=== PATIENT | male | born 1985 | race Two or more races ===

== ENCOUNTER 2023-06-30 15:28 | Emergency (ER) | payer MEDICAID, OTHER ==
[~2023-06-30] VITALS: Ht 193 cm; Wt 113.6 kg
[2023-06-30 15:47] LABS: Eosinophils # (auto) 0.2 10 ^3/uL (0-0.8)
[2023-06-30 15:49] LABS: Basophils # (auto) 0 10 ^3/uL (0-0.2); Basophils % (auto) 0.6 % (0.0-2.0); Eosinophils % (auto) 2.2 % (0.0-7.0); Hematocrit 37.1 % (41.0-53.0); Lymphocytes # (auto) 2.2 10 ^3/uL (0.4-5.4); Lymphocytes % (auto) 28.2 % (10.0-50.0); Mean Corpuscular Hemoglobin 26.5 pg (28.0-32.0); Mean Corpuscular Hgb Conc. 32.3 g/dL (32.0-36.0); Mean Corpuscular Volume 81.8 fL (80.0-100.0); Monocytes # (auto) 0.5 10 ^3/uL (0-1.3); Monocytes % (auto) 5.9 % (0.0-12.0); Neutrophils # (auto) 4.8 10 ^3/uL (1.6-8.6); Neutrophils % (auto) 63.1 % (37.0-80.0); Red Blood Cells 4.53 10^6/uL (4.5-5.90); Red Cell Distribution Width 15.7 % (11.8-14.3); White Blood Cell 7.6 10^3/uL (4.4-10.8)
[2023-06-30 16:04] LABS: INR 1.05 (0.9-1.15); Partial Thromboplastin Time 30.3 SEC (24.5-34.5)
[2023-06-30 16:05] LABS: Alanine Aminotransferase 23 U/L (7-40); Albumin 4.2 g/dL (3.2-4.8); Alkaline Phosphatase 64 U/L (46-116); Anion Gap 5 (5-15); Aspartate Aminotransferase 18 U/L (13-40); BUN/Creatinine Ratio 17.2 (10.0-20.0); Blood Urea Nitrogen 16 mg/dL (9-23); Calcium 8.9 mg/dL (8.7-10.4); Carbon Dioxide 31 mmol/L (20-30); Chloride 105 mmol/L (98-107); Glucose 76 mg/dL (74-106); Potassium 4.1 mmol/L (3.5-5.1); Sodium 141 mmol/L (136-145)
[2023-06-30 16:06] LABS: Bilirubin, Total 0.3 mg/dL (0.2-1.0); Total Protein 7.5 g/dL (5.7-8.2)
[2023-06-30] MEDS ORDERED: LORA-1121 GT (17:59)
[2023-06-30 18:17] VITALS: BP 144/82; PULSE 84; RESP 19; TEMP 98.4; O2SAT 96
== END 2023-06-30 18:19 | disposition home or self-care (01) ==
LOC: ER 15:28
DX: R00.2 Palpitations (principal); I10 Essential (primary) hypertension
CPT/HCPCS: 36415; 71046; 80053; 84484; 85025; 85379; 85610; 85730; 93005

== ENCOUNTER 2023-10-01 09:34 | Emergency (ER) | payer MEDICAID ==
[~2023-10-01] VITALS: Ht 193 cm; Wt 151.0 kg
[~2023-10-01 09:34] MED LIST: LORA-1121 GT
[2023-10-01] MEDS: KETOROLAC TROMETH 60MG/2ML VIAL ONE (11:17)
[2023-10-01] MEDS: methylPREDNISolone SOD SUCC 125 MG/2 ML VL ONE (11:18)
[2023-10-01] MEDS: methylPREDNISolone SOD SUCC 125 MG/2 ML VL IM ONE (11:46)
[2023-10-01] MEDS: KETOROLAC TROMETH 60MG/2ML VIAL IM ONE (11:46)
[2023-10-01] MEDS ORDERED: MELO7.5T7 PO (13:54)
[2023-10-01] MEDS ORDERED: CYCL-837 PO (13:54)
[2023-10-01 14:14] VITALS: BP 167/96; PULSE 80; RESP 18; TEMP 98.6; O2SAT 96
== END 2023-10-01 14:14 | disposition home or self-care (01) ==
LOC: ER 09:34
DX: M54.16 Radiculopathy, lumbar region (principal); M79.18 Myalgia, other site; I10 Essential (primary) hypertension
CPT/HCPCS: 72100; 96372; 99284; J1885; J2930

== ENCOUNTER 2023-10-29 08:28 | Emergency (ER) | payer MEDICAID ==
[~2023-10-29] VITALS: Ht 190.5 cm; Wt 149.9 kg
[~2023-10-29 08:28] MED LIST changes: +CYCL-837 PO; +MELO7.5T7 PO
[2023-10-29 09:23] VITALS: BP 155/106; PULSE 85; RESP 18; TEMP 98; O2SAT 96
[2023-10-29] MEDS: HYDROcodone-ACET 5/325MG TAB PO ONE (09:33)
[2023-10-29] MEDS: methylPREDNISolone SOD SUCC 125 MG/2 ML VL IM ONE (09:34)
== END 2023-10-29 10:33 | disposition home or self-care (01) ==
LOC: ER 08:28
DX: M54.16 Radiculopathy, lumbar region (principal); I10 Essential (primary) hypertension; M54.42 Lumbago with sciatica, left side
CPT/HCPCS: 96372; 99283; J2930

== ENCOUNTER 2024-03-23 20:04 | Inpatient (IN) | payer MEDICAID ==
[~2024-03-23] VITALS: Ht 190.5 cm; Wt 149.5 kg
[2024-03-23] MEDS: IOHEXOL 300 MG/ML 100ML BOTTLE IJ ONE (22:02)
[2024-03-23 22:36] LABS: Basophils # (auto) 0 10 ^3/uL (0-0.2); Basophils % (auto) 0.3 % (0.0-2.0); Eosinophils # (auto) 0 10 ^3/uL (0-0.8); Eosinophils % (auto) 0.6 % (0.0-7.0); Hematocrit 39.5 % (41.0-53.0); Hemoglobin 12.7 g/dL (13.5-17.5); Lymphocytes # (auto) 1.2 10 ^3/uL (0.4-5.4); Mean Corpuscular Volume 84.2 fL (80.0-100.0); Monocytes # (auto) 0.3 10 ^3/uL (0-1.3); Monocytes % (auto) 4.5 % (0.0-12.0); Neutrophils # (auto) 6.2 10 ^3/uL (1.6-8.6); Neutrophils % (auto) 79.6 % (37.0-80.0); Nucleated Red Blood Cells % 0.2 %; Platelet Count (auto) 351 10^3/uL (140-450); Red Blood Cells 4.69 10^6/uL (4.5-5.90); White Blood Cell 7.8 10^3/uL (4.4-10.8)
[2024-03-23 22:54] LABS: Alanine Aminotransferase 19 U/L (7-40); Albumin 4.7 g/dL (3.2-4.8); Alkaline Phosphatase 60 U/L (46-116); Anion Gap 7 (5-15); Aspartate Aminotransferase 14 U/L (13-40); BUN/Creatinine Ratio 15.5 (10.0-20.0); Blood Urea Nitrogen 16 mg/dL (9-23); Calcium 9.8 mg/dL (8.7-10.4); Carbon Dioxide 27 mmol/L (20-31); Chloride 109 mmol/L (98-107); Glucose 111 mg/dL (74-106); Potassium 4.1 mmol/L (3.5-5.1); Sodium 143 mmol/L (136-145)
[2024-03-23 22:55] LABS: Bilirubin, Total 0.4 mg/dL (0.2-1.0)
[2024-03-23] MEDS: ONDANSETRON HCL 4 MG/2 ML VIAL IV ONE (22:56)
[2024-03-23] MEDS: MORPHINE SULFATE 4 MG/ML SYR/VIAL IV ONE (22:57)
[2024-03-23 23:04] VITALS: PULSE 61; RESP 19; O2SAT 99
[2024-03-23] MEDS: SODIUM CHLORIDE 0.9% 1,000 ML IV ONE (23:04)
[2024-03-24] VITALS (8 sets, daily range): BP systolic 134–150; BP diastolic 76–95; PULSE 53–88; RESP 16–20; TEMP 97.2–98.1; O2SAT 92–100
[2024-03-24] MEDS: MORPHINE SULFATE 4 MG/ML SYR/VIAL IV ONE (03:15)
[2024-03-24] MEDS ORDERED: ONDANSETRON HCL 4 MG/2 ML VIAL IV PRN ×2 (03:45→16:00)
[2024-03-24] MEDS ORDERED: MORPHINE SULFATE INJ 2 MG/ml SYRG IV PRN ×2 (03:45→16:00)
[2024-03-24] MEDS: SODIUM CHLORIDE 0.9% 1,000 ML IV SCH (04:12)
[2024-03-24 05:09] LABS: INR 1.06 (0.9-1.15); Partial Thromboplastin Time 28.9 SEC (24.5-34.5); Prothrombin Time 11.2 sec (9.3-11.8)
[2024-03-24] MEDS: hydrALAZINE HCL 20 MG/ML VL IV PRN (06:15)
[2024-03-24] MEDS: GASTROGRAFIN 120 ML SOL ONE (07:54)
[2024-03-24 11:26] LABS: Urine Bacteria None Seen /hpf (None Seen)
[2024-03-24 11:41] LABS: Urine Blood Negative /uL (Negative); Urine Clarity Clear (Clear); Urine Color Light-Yellow (Yellow); Urine Protein, UAD Negative (Negative); Urine Specific Gravity 1.039 (1.001-1.035); Urine Urobilinogen Normal (Negative); Urine WBC 1 /hpf (0 - 3); Urine pH 6.5 (5.0-9.0)
[2024-03-24] MEDS: ceFAZolin 2 GM/D5W100ml 100 ML IV ONE (14:13)
[2024-03-24] MEDS: ceFAZolin 1GM/50ML 50 ML IV ONE (14:13)
[2024-03-24] MEDS: SUCCINYLCHOLINE CHLORIDE 20 MG/ML 10ML VIAL IV ONE (14:49)
[2024-03-24] MEDS ORDERED: LIDOCAINE 2% (LOCAL ANESTH.) PF 5ml SDV ONE (14:54)
[2024-03-24] MEDS ORDERED: HYDROmorphone HCL 2 MG/ML VL/or syr ONE (14:54)
[2024-03-24] MEDS ORDERED: GLYCOPYRROLATE 0.2 MG/ML 1ML VIAL ONE (14:54)
[2024-03-24] MEDS ORDERED: PROPOFOL 10 MG/ML 20 ML IV ONE (14:54)
[2024-03-24] MEDS ORDERED: ePHEDrine SULFATE 50 MG/ML AMP ONE (14:54)
[2024-03-24] MEDS ORDERED: DexAMETHasone SOD PHOS 10MG/1ML VIAL INJ ONE (14:54)
[2024-03-24] MEDS ORDERED: fentaNYL CITRATE 100 MCG/2 ML VL ONE (14:54)
[2024-03-24] MEDS ORDERED: KETOROLAC TROMETH 30 MG/ML 1ML VIAL ONE (14:54)
[2024-03-24] MEDS ORDERED: ROCURONIUM 10MG/ML 10ML VIAL IV ONE (14:57)
[2024-03-24] MEDS ORDERED: MIDAZOLAM HCL 2MG/2ML 2ml VIAL (1mg/ml) ONE (14:58)
[2024-03-24] MEDS: BUPIVACAINE 0.25% INJ 50ML VIAL ONE (15:14)
[2024-03-24] MEDS: LIDOCAINE W/ EPINEPHRINE 1% 20ML VIAL ONE (15:14)
[2024-03-24] MEDS ORDERED: D5W/SOD CHL 0.45%/KCL 20MEQ 1,000 ML IV SCH (16:00)
[2024-03-24] MEDS ORDERED: IPRATROPIUM BROM 0.5 MG/2.5ML INH SOL NEB PRN (16:00)
[2024-03-24] MEDS ORDERED: ALBUTEROL SULF 2.5 MG/0.5ML(0.5%) NEB SOLN NEB PRN (16:00)
[2024-03-24] MEDS: LIDOCAINE 1%-Mpf/Epinephrine 1:200,000 30ml VIAL IJ ONE (16:15)
[2024-03-24] MEDS ORDERED: SUGAMMADEX 200mg/2ml Vial (100MG/ML) IV ONE (16:17)
[2024-03-24] MEDS: POVIDONE IODINE 10 % TOPICAL OINT 30GM TOP ONE ×2 (16:29→16:36)
[2024-03-24] MEDS ORDERED: ACETAMINOPHEN/CODEINE#3 (300/30mg) TAB PO PRN (16:30)
[2024-03-24] MEDS: D5W/SOD CHL 0.45%/KCL 20MEQ 1,000 ML IV SCH (16:30)
[2024-03-24] MEDS: HYDROmorphone HCL 2 MG/ML VL/or syr IV ONE (16:30)
[2024-03-24] MEDS ORDERED: HYDROmorphone HCL 2 MG/ML VL/or syr IV PRN (17:00)
[2024-03-24] MEDS: ONDANSETRON HCL 4 MG/2 ML VIAL IV ONE (17:00)
[2024-03-24] MEDS ORDERED: LOSA-535 PO (17:40)
[2024-03-24] MEDS ORDERED: AMLO1TAB22 PO (17:40)
[2024-03-24] MEDS ORDERED: CLOP75TA70 PO (17:41)
[2024-03-24] MEDS ORDERED: MELO15TA29 PO (17:41)
[2024-03-24] MEDS ORDERED: ASPI-325 PO (17:41)
[2024-03-24] MEDS ORDERED: CHOL20003 PO (17:41)
[2024-03-24] MEDS ORDERED: LABETALOL HCL 20 MG/4 ML VL IV PRN (18:30)
[2024-03-24] MEDS: ceFAZolin 2 GM/D5W50ml 50 ML IV SCH (22:05)
[2024-03-25] VITALS (9 sets, daily range): BP systolic 107–142; BP diastolic 58–96; PULSE 71–85; RESP 16–20; TEMP 97.6–98.9; O2SAT 94–100
[2024-03-25 07:43] LABS: Basophils # (auto) 0 10 ^3/uL (0-0.2); Eosinophils # (auto) 0 10 ^3/uL (0-0.8); Hematocrit 37.7 % (41.0-53.0); Hemoglobin 12.7 g/dL (13.5-17.5); Lymphocytes # (auto) 1.1 10 ^3/uL (0.4-5.4); Lymphocytes % (auto) 11.2 % (10.0-50.0); Mean Corpuscular Hemoglobin 28.3 pg (28.0-32.0); Mean Corpuscular Hgb Conc. 33.6 g/dL (32.0-36.0); Mean Corpuscular Volume 84.3 fL (80.0-100.0); Monocytes # (auto) 0.3 10 ^3/uL (0-1.3); Monocytes % (auto) 2.9 % (0.0-12.0); Neutrophils # (auto) 8.4 10 ^3/uL (1.6-8.6); Neutrophils % (auto) 85.9 % (37.0-80.0); Platelet Count (auto) 316 10^3/uL (140-450); Red Blood Cells 4.47 10^6/uL (4.5-5.90); Red Cell Distribution Width 14.9 % (11.8-14.3); White Blood Cell 9.8 10^3/uL (4.4-10.8)
[2024-03-25 07:45] LABS: Alanine Aminotransferase 15 U/L (7-40); Albumin 4.2 g/dL (3.2-4.8); Alkaline Phosphatase 59 U/L (46-116); Anion Gap 9 (5-15); Aspartate Aminotransferase 12 U/L (13-40); BUN/Creatinine Ratio 12.7 (10.0-20.0); Blood Urea Nitrogen 10 mg/dL (9-23); Calcium 9.5 mg/dL (8.7-10.4); Carbon Dioxide 25 mmol/L (20-31); Chloride 106 mmol/L (98-107); Glucose 102 mg/dL (74-106); Potassium 3.8 mmol/L (3.5-5.1); Sodium 140 mmol/L (136-145)
[2024-03-25 07:46] LABS: Bilirubin, Total 0.4 mg/dL (0.2-1.0); Total Protein 7.3 g/dL (5.7-8.2)
[2024-03-25] MEDS: PANTOPRAZOLE 40 MG/10 ML VIAL INJ IV SCH (11:32)
[2024-03-25] MEDS ORDERED: CEPH500T PO (12:11)
== END 2024-03-25 18:30 | disposition home or self-care (01) | DRG 227 ==
LOC: ER 20:04 → OVERFLOW 03-24 03:44 → WEST WING 03-24 17:17
PROVIDERS: ADMIT Nurse Practitioner; ATTEND Nurse Practitioner Acute Care
PROC: 0WQF0ZZ Repair Abdominal Wall, Open Approach (ICD-10-PCS; 2024-03-24)
PROC: 0DBU0ZZ Excision of Omentum, Open Approach (ICD-10-PCS; principal; 2024-03-24 15:25)
DX: K43.6 Other and unspecified ventral hernia with obstruction, without gangrene (principal); E66.9 Obesity, unspecified; K42.0 Umbilical hernia with obstruction, without gangrene; I10 Essential (primary) hypertension; Z68.39 Body mass index [BMI] 39.0-39.9, adult
CPT/HCPCS: 36415; 74177; 80053; 81001; 85025; 85610; 85730; 86850; 86900; 86901; 93005; 96361; 96374; 96375; 96376; 99291; C1781; G0378; J0330; J1100; J1885; J2001; J2250; J2405; J2470; J2704; J3490

== ENCOUNTER 2024-04-06 11:29 | Emergency (ER) | payer MEDICAID ==
[~2024-04-06] VITALS: Ht 190.5 cm; Wt 141.6 kg
[~2024-04-06 11:29] MED LIST changes: +AMLO1TAB22 PO; +ASPI-325 PO; +CEPH500T PO; +CHOL20003 PO; +CLOP75TA70 PO; -CYCL-837 PO; -LORA-1121 GT; +LOSA-535 PO; +MELO15TA29 PO; -MELO7.5T7 PO
[2024-04-06 11:54] LABS: Urine Bacteria None Seen /hpf (None Seen)
[2024-04-06 12:13] LABS: Urine Blood Negative /uL (Negative); Urine Clarity Clear (Clear); Urine Color Light-Yellow (Yellow); Urine Mucus FEW (None Seen); Urine Protein, UAD Negative (Negative); Urine Specific Gravity 1.019 (1.001-1.035); Urine Urobilinogen Normal (Negative); Urine WBC 1 /hpf (0 - 3); Urine pH 6.5 (5.0-9.0)
[2024-04-06] MEDS: SODIUM CHLORIDE 0.9% 1,000 ML IVB ONE (12:24)
[2024-04-06] MEDS: KETOROLAC TROMETH 30 MG/ML 1ML VIAL IV ONE (12:26)
[2024-04-06 12:34] LABS: Basophils # (auto) 0.1 10 ^3/uL (0-0.2); Basophils % (auto) 0.7 % (0.0-2.0); Eosinophils # (auto) 0.1 10 ^3/uL (0-0.8); Eosinophils % (auto) 1.3 % (0.0-7.0); Hematocrit 39.5 % (41.0-53.0); Hemoglobin 12.8 g/dL (13.5-17.5); Lymphocytes # (auto) 1.7 10 ^3/uL (0.4-5.4); Lymphocytes % (auto) 21.5 % (10.0-50.0); Mean Corpuscular Hemoglobin 27.1 pg (28.0-32.0); Mean Corpuscular Hgb Conc. 32.3 g/dL (32.0-36.0); Mean Corpuscular Volume 83.9 fL (80.0-100.0); Monocytes # (auto) 0.5 10 ^3/uL (0-1.3); Neutrophils # (auto) 5.6 10 ^3/uL (1.6-8.6); Neutrophils % (auto) 70.5 % (37.0-80.0); Nucleated Red Blood Cells % 0.1 %; Platelet Count (auto) 357 10^3/uL (140-450); Red Cell Distribution Width 14.9 % (11.8-14.3); White Blood Cell 7.9 10^3/uL (4.4-10.8)
[2024-04-06 12:51] LABS: Alanine Aminotransferase 19 U/L (7-40); Albumin 4.6 g/dL (3.2-4.8); Alkaline Phosphatase 65 U/L (46-116); Anion Gap 5 (5-15); Aspartate Aminotransferase 13 U/L (13-40); BUN/Creatinine Ratio 16.7 (10.0-20.0); Blood Urea Nitrogen 14 mg/dL (9-23); Calcium 9.6 mg/dL (8.7-10.4); Carbon Dioxide 26 mmol/L (20-31); Chloride 108 mmol/L (98-107); Glucose 87 mg/dL (74-106); Lipase 35 U/L (12-53); Potassium 4.2 mmol/L (3.5-5.1); Sodium 139 mmol/L (136-145)
[2024-04-06 12:52] LABS: Bilirubin, Total 0.6 mg/dL (0.2-1.0); Total Protein 7.8 g/dL (5.7-8.2)
[2024-04-06] MEDS ORDERED: HYDR-4902 PO (13:01)
[2024-04-06] MEDS ORDERED: CEPH250C PO (14:20)
[2024-04-06 14:31] VITALS: BP 146/85; PULSE 63; RESP 18; TEMP 98; O2SAT 100
== END 2024-04-06 14:45 | disposition home or self-care (01) ==
LOC: ER 11:29
DX: R10.9 Unspecified abdominal pain (principal); M79.662 Pain in left lower leg; M54.50 Low back pain, unspecified; I10 Essential (primary) hypertension; Z79.82 Long term (current) use of aspirin; Z79.899 Other long term (current) drug therapy; Z98.890 Other specified postprocedural states
CPT/HCPCS: 36415; 74176; 80053; 81001; 83690; 85025; 96361; 96374; 99285; J1885; J7030